=== PATIENT | male | born 1990 | race African-American/Black ===

== ENCOUNTER 2017-11-01 14:44 | Emergency (ER) | payer SELFPAY ==
[~2017-11-01] VITALS: Ht 175.3 cm; Wt 68.0 kg
[2017-11-01 15:15] VITALS: BP 114/66
[2017-11-01] MEDS ORDERED: AMOXICILLIN500 MG ORAL (16:15)
[2017-11-01] MEDS ORDERED: IBUPROFEN600 MG ORAL (16:15)
[2017-11-01 16:20] VITALS: BP 114/66
--- NOTE | 2017-11-01 16:23 | Diagnostic Imaging Report ---
Indication: Reason For Exam: PAIN Technique: 3 views of the right ankle Comparison: none Findings: No acute fractures. No dislocations. Joint spaces are preserved. Normal mineralization. No radiopaque foreign body. Impression: Negative
--- NOTE | 2017-11-01 16:31 | Emergency Room Report ---
History of Present Illness General Chief Complaint: Pain Source: Patient Present Illness HPI 27-year-old male resents ED complaining of right ankle pain. States he twisted his ankle yesterday while playing basketball. Notes pain is throbbing, 8 out of 10, nonradiating. Is able to bear weight. Denies any other injuries. Also complaining of tooth pain. States that he cracked a tooth in his lower jaw many months ago. States he's been having increased pain. Denies any fevers or chills. Denies any discharge. No other aggravating relieving factors. Denies any other associated symptoms Allergies: Coded Allergies: No Known Allergies (Unverified , 11/01/17) Patient History Past Medical History: none Past Surgical History: none Pertinent Family History: none Social History: Denies: smoking, alcohol use, drug use Immunizations: UTD Reviewed Nursing Documentation: PMH: Agreed; PSxH: Agreed Nursing Documentation-PMH Past Medical History: No Stated History Review of Systems All Other Systems: negative except mentioned in HPI Physical Exam Vital Signs Date Time Temp Pulse Resp B/P (MAP) Pulse Ox O2 Delivery O2 Flow Rate FiO2 11/01/17 15:14 98.4 54 18 114/66 98 Room Air 98.4 Sp02 EP Interpretation: reviewed, normal General Appearance: no apparent distress, alert, GCS 15, non-toxic Head: normocephalic Eyes: bilateral eye normal inspection, bilateral eye PERRL ENT: normal ENT inspection, other - cracked tooth R lower jaw. no dental abscess. no discharge Neck: normal inspection Respiratory: normal inspection Cardiovascular #1: normal inspection Gastrointestinal: normal inspection Rectal: deferred Genitourinary: no CVA tenderness Musculoskeletal: back normal, gait/station normal, normal range of motion, tender - R ankle TTP Neurologic: alert, oriented x3, responsive, motor strength/tone normal, sensory intact, speech normal Psychiatric: judgement/insight normal, memory normal, mood/affect normal, no suicidal/homicidal ideation Skin: normal inspection Lymphatic: normal inspection Procedures Splinting Splinting : Consent: Verbal Pre-Made Type: SEDRICK wrap - R ankle Pre-Proc Neuro Vasc Exam: normal Post-Proc Neuro Vasc Exam: normal Patient Tolerated: Well Complications: None Medical Decision Making Diagnostic Impression: Primary Impression: Tooth pain Additional Impression: Ankle sprain Qualified Codes: S93.401A - Sprain of unspecified ligament of right ankle, initial encounter ER Course Hospital Course 27-year-old M presents to ED complaining of R ankle pain s/p trip and fall. tooth pain Differential diagnoses include: Fracture, dislocation, sprain, contusion Clinical course Patient placed on stretcher. After initial history and physical, I ordered pain medications and Xrays of R ankle Xrays prelim read shows no acute fracture/dislocation. placed in sedrick wrap, given crutches No evidence of dental abscess. There is a cracked tooth. We will prescribe antibiotics. Patient is to see a dentist Diagnosis - ankle sprain, tooth pain Stable and discharged to home with prescription for Motrin, amoxicillin. apply ice, keep elevated. weight bear as tolerated. Followup with PMD. Return to ED if symptoms recur or worsen Other X-Ray Diagnostic Results Other X-Ray Diagnostic Results : X-Ray ordered: R ankle # of Views/Limited Vs Complete: 3 View Indication: Pain EP Interpretation: Yes Interpretation: no dislocation, no soft tissue swelling, no fractures, nonspecific bowel gas Impression: No acute disease Electronically Signed by: Electronically signed by Tony Harman MD Last Vital Signs Date Time Temp Pulse Resp B/P (MAP) Pulse Ox O2 Delivery O2 Flow Rate FiO2 11/01/17 15:41 98.4 11/01/17 15:15 78 18 114/66 98 Room Air Status: improved Disposition: HOME, SELF-CARE Condition: Stable Scripts Amoxicillin* (AMOXIL*) 500 Mg Capsule 500 MG ORAL THREE TIMES A DAY, #21 CAP Prov: Tony Harman MD 11/01/17 Ibuprofen* (MOTRIN*) 600 Mg Tablet 600 MG ORAL Q8H PRN for For Pain, #30 TAB 0 Refills Prov: Tony Harman MD 11/01/17 Departure Forms: Return to Work Return to Work Date: Nov 03, 2017 Work Restrictions: No Prolonged Standing Patient Instructions: Ankle Sprain, [id number] Tony Harman MD Nov 01, 2017 16:31
== END 2017-11-01 16:25 | disposition home or self-care (01) ==
LOC: EMR 16:15
DX: S93.401A Sprain of unspecified ligament of right ankle, initial encounter (principal); X50.1XXA Overexertion from prolonged static or awkward postures, initial encounter; Y93.67 Activity, basketball; Y92.9 Unspecified place or not applicable; K08.89 Other specified disorders of teeth and supporting structures
CPT/HCPCS: 99284

== ENCOUNTER 2018-03-02 16:55 | Emergency (ER) | payer SELFPAY ==
[~2018-03-02] VITALS: Ht 175.3 cm; Wt 68.0 kg
[~2018-03-02 16:55] MED LIST: AMOXICILLIN500 MG ORAL; IBUPROFEN600 MG ORAL
[2018-03-02 17:10] VITALS: BP 116/63
[2018-03-02] MEDS ORDERED: AUGMENTIN 875-1 EAC1 ORAL (18:19)
[2018-03-02] MEDS ORDERED: ACETAMINOPHEN-1 EAC1 ORAL (18:19)
[2018-03-02 18:29] VITALS: BP 116/63
--- NOTE | 2018-03-02 18:49 | Emergency Room Report ---
History of Present Illness General Chief Complaint: Skin Rash/Abscess Source: Patient Present Illness HPI 27-year-old male presents ED complaining of pain and swelling to his mouth 1 day. States there is a swelling near his tooth. States he's had dental abscesses before and required drainage. Denies fevers or chills. Pain is 9 out of 10, throbbing, nonradiating. Denies neck stiffness. No other aggravating relieving factors. Denies any other associated symptoms Allergies: Coded Allergies: No Known Allergies (Unverified , 11/01/17) Patient History Past Medical History: none Past Surgical History: none Pertinent Family History: none Social History: Denies: smoking, alcohol use, drug use Immunizations: UTD Reviewed Nursing Documentation: PMH: Agreed; PSxH: Agreed Nursing Documentation-PMH Past Medical History: No Stated History Review of Systems All Other Systems: negative except mentioned in HPI Physical Exam Vital Signs Date Time Temp Pulse Resp B/P (MAP) Pulse Ox O2 Delivery O2 Flow Rate FiO2 03/02/18 17:02 99.2 78 16 116/63 95 Room Air 99.1 Sp02 EP Interpretation: reviewed, normal General Appearance: no apparent distress, alert, GCS 15, non-toxic Head: normocephalic Eyes: bilateral eye normal inspection, bilateral eye PERRL ENT: TMs + canals normal, uvula midline, other - swelling near gumline L lower jaw. fluctuant Neck: normal inspection, supple, no meningismus Respiratory: normal inspection Cardiovascular #1: normal inspection Gastrointestinal: normal inspection Rectal: deferred Genitourinary: no CVA tenderness Musculoskeletal: normal inspection Neurologic: alert, oriented x3, responsive, motor strength/tone normal, sensory intact, speech normal Psychiatric: normal inspection Skin: normal inspection Lymphatic: normal inspection Procedures Incision and Drainage Incision and Drainage : Consent: Verbal Blade Size: 18 guage needle Wound Location: other - L lower jaw Wound's Depth, Shape: other - abscess Wound Explored: purulent discharge Anesthesia: 1% Lidocaine Splint Applied?: No Sling Applied?: No Patient Tolerated: Well Complications: None Medical Decision Making Diagnostic Impression: Primary Impression: Dental abscess ER Course 27-year-old male presents ED complaining of tooth pain. differential - Cracked tooth, dental abscess, cavity Patient placed on stretcher. After initial history, physical exam reveals a male in mild distress. There is an area of previous tooth extraction left lower jaw with surrounding swelling and fluctuance. Consistent with an abscess No nuchal rigidity. Patient otherwise nontoxic, afebrile. Using 18-gauge needle I was able to aspirate approximately 2 mL of purulent discharge patient tolerated procedure without difficulty. Dressings applied. Patient will be discharged on Tylenol No. 3 and Augmentin. I will provide him with dental clinic referrals Diagnosis- dental abscess Stable and discharged to home prescription for tylenol #3, augmentin. Instructed to see dentist. Return to ED if symptoms recur or worse Last Vital Signs Date Time Temp Pulse Resp B/P (MAP) Pulse Ox O2 Delivery O2 Flow Rate FiO2 03/02/18 18:29 99.1 78 16 116/63 95 Room Air 99.1 Status: improved Disposition: HOME, SELF-CARE Condition: Stable Scripts Acetaminophen With Codeine (T#3) (TYLENOL #3 TAB*) Y Tab 1 TAB ORAL Q8H PRN for For Pain, #20 TAB Prov: Tony Harman MD 03/02/18 Amoxicillin/Potassium Clav 875-125* (AUGMENTIN 875-125 TABLET*) 1 Each Tablet 1 TAB ORAL TWICE A DAY, #14 TAB Prov: Tony Harman MD 03/02/18 Referrals: [facility](age 2-12) - Orthodontic Clinic - Hours: Sun,Sun,, 8:15am and 1pm (new patient screening), Tues. 1pm. Emergency clinic Sunday - Sunday 8:30am and 1pm, Tues. 1pm. *Call to check if clinic is open; No appointment necessary for the first visit ( new patient screening), Arrive 15-30 minutes early as it is first come, first serve. [facility] INFO: New Patient Screening: Sun- 8am-1pm Sun- 9am -5pm and Sun 2pm-5pm Patient Instructions: Dental Abscess, [id number] Tony Harman MD Mar 02, 2018 18:49
== END 2018-03-02 19:00 | disposition home or self-care (01) ==
LOC: EMR 18:35
DX: K04.7 Periapical abscess without sinus (principal)
CPT/HCPCS: 10060; 99283